=== PATIENT | female | born 1995 | race Hispanic/Latino ===

== ENCOUNTER 2021-06-12 11:48 | Day surgery (SDC) | payer MEDICAID, OTHER ==
[2021-06-12 12:45] VITALS: BMI 25.6
[2021-06-12] MEDS ORDERED: hydrALAZINE 20 MG/ML VIAL SLOW IVP PRN (13:30)
[2021-06-12] MEDS ORDERED: Acetaminophen 325 MG TAB PO SCH (13:30)
[2021-06-12 14:13] LABS: #Eosinphils 0.1 10x3/uL (0.0-0.5); #Monocytes 0.8 10x3/uL (0.0-1.1); #Neutrophils 7.2 10x3/uL (1.5-8.4); %Basophils 0.2 % (0.0-2.0); %Eosinophils 0.7 % (0.0-6.0); %Lymphocytes 18.4 % (18.0-47.0); %Monocytes 7.9 % (0.0-10.0); Hemoglobin 11.8 g/dL (12.0-15.5); Mean Corpuscular HGB CONC 33.7 g/dL (32.0-36.0); Mean Corpuscular Volume 94.9 fl (81.6-98.3); Mean Platelet Volume 11.8 fl (7.4-10.4); Platelet Count 158 10x3/uL (150-450); RBC Distribution Width 13.3 % (11.5-14.5); Red Blood Cell (RBC) Count 3.69 10x6/uL (3.90-5.03)
[2021-06-12 14:31] LABS: Bilirubin Neg (Negative); Blood, Urine Negative (Negative); Clarity Clear (Clear); Glucose, Urine (Dipstick) Normal (Negative); Ketone, Urine Negative (Negative); Leukocyte 500 (Negative); Nitrite Negative (Negative); Protein, Urine (Dipstick) Negative (Neg-Trace); Specific Gravity, Urine 1.005 (1.002-1.036); Urobilinogen Normal mg/dL (Less than 2)
[2021-06-12 14:35] LABS: Urine Culture Reflex No No
[2021-06-12 14:38] LABS: RBC/HPF 0-3 HPF (0-3)
[2021-06-12 14:39] LABS: Bacteria/HPF 2+ HPF (None Seen); Squamous Epithelial 0-3 HPF (0-3); WBC/HPF 21-50 HPF (0-3)
[2021-06-12 14:48] LABS: ALT (SGPT) Less than 6 U/L (8-55); AST (SGOT) 13 U/L (5-34); Albumin 3.6 g/dL (3.5-5.0); Alkaline Phosphatase 77 U/L (40-110); Anion Gap 13 mmol/L (10-20); BUN (Urea Nitrogen) 6 mg/dL (7.0-18.7); Bilirubin, Total 0.4 mg/dL (0.2-1.2); Calc. Creatinine Clearance 179 mL/min (70-130); Calcium 9.1 mg/dL (7.8-10.44); Carbon Dioxide 20 mmol/L (22-29); Chloride 106 mmol/L (98-107); Globulin 3.7 g/dL (2.4-3.5); Glucose 74 mg/dL (70-105); Potassium 3.6 mmol/L (3.5-5.1); Protein, Total 7.3 g/dL (6.0-8.3); Sodium 135 mmol/L (136-145)
[2021-06-12] MEDS ORDERED: Sodium Chloride 0.9% 1,000 ML IV SCH (15:15)
[2021-06-12] MEDS ORDERED: cefTRIAXone\\ROCEPHIN 1 GM in Sodium Chloride 0.9% 100 ML IVPB SCH (16:00)
== END 2021-06-12 19:42 | disposition home or self-care (01) ==
LOC: CSHLD/OP 11:48
PROVIDERS: ATTEND Family Medicine
DX: O99.891 Other specified diseases and conditions complicating pregnancy (principal); R10.9 Unspecified abdominal pain; R30.0 Dysuria; N89.8 Other specified noninflammatory disorders of vagina; O99.013 Anemia complicating pregnancy, third trimester; Z3A.32 32 weeks gestation of pregnancy
CPT/HCPCS: 80053; 81001; 85025; 87086; 87480; 87510; 87591; 87660; 96360; 96361; 96375; 99285; J0696; J3490

== ENCOUNTER 2021-07-17 04:29 | Day surgery (SDC) | payer OTHER ==
[2021-07-17] MEDS ORDERED: hydrALAZINE 20 MG/ML VIAL SLOW IVP PRN (05:29)
[2021-07-17 05:31] VITALS: BMI 29.0
[2021-07-17 05:38] LABS: Fetal Membranes Rupture No Membranes Rupture (No Rupture)
== END 2021-07-17 10:09 | disposition home or self-care (01) ==
LOC: CSHLD/OP 04:29
PROVIDERS: ATTEND Obstetrics & Gynecology
DX: O47.1 False labor at or after 37 completed weeks of gestation (principal); O99.013 Anemia complicating pregnancy, third trimester; Z3A.37 37 weeks gestation of pregnancy
CPT/HCPCS: 84112; 99284

== ENCOUNTER 2021-07-30 06:56 | Inpatient (IN) | payer MEDICAID, OTHER, SELFPAY ==
[2021-07-30] MEDS ORDERED: Oxytocin 10 UNITS/ML VIAL ONE ×2 (07:00→07:06)
[2021-07-30] MEDS ORDERED: Promethazine HCl 25 MG/ML VIAL IM PRN (07:16)
[2021-07-30] MEDS ORDERED: hydrALAZINE 20 MG/ML VIAL SLOW IVP PRN ×2 (07:16→08:43)
[2021-07-30] MEDS ORDERED: Butorphanol Tartrate 1 MG/ML VIAL SLOW IVP PRN (07:16)
[2021-07-30] MEDS ORDERED: Ondansetron PF 4 MG/2 ML Vial IVP PRN ×2 (07:16→08:43)
[2021-07-30] MEDS ORDERED: Lactated Ringer's 1,000 ML IV SCH (07:30)
[2021-07-30 07:53] LABS: Mean Corpuscular HGB CONC 32.7 g/dL (32.0-36.0); Mean Corpuscular Hemoglobin 30.1 pg (27.0-33.0); Mean Corpuscular Volume 91.9 fl (81.6-98.3); Mean Platelet Volume 12.2 fl (7.4-10.4); Platelet Count 167 10x3/uL (150-450); RBC Distribution Width 12.8 % (11.5-14.5); Red Blood Cell (RBC) Count 4.32 10x6/uL (3.90-5.03); White Blood Cell (WBC) Count 8.7 10x3/uL (3.5-10.5)
[2021-07-30 08:22] LABS: Hep B Surf Ag Non-Reactive S/CO (NonReactive); Syphilis Antibody Nonreactive (Nonreactive); Syphilis Antibody Index 0.04 S/CO (<1.00 Non-Reactive)
[2021-07-30 08:42] LABS: HBSAg Index 0.13 S/CO (0-0.99)
[2021-07-30] MEDS ORDERED: Benzocaine-Menthol 82.5 ML CAN TOP PRN (08:43)
[2021-07-30] MEDS ORDERED: Bisacodyl 10 MG SUPP PR PRN (08:43)
[2021-07-30] MEDS ORDERED: Boostrix 0.5 ML (Tdap) VIAL IM ONE (08:43)
[2021-07-30] MEDS ORDERED: Milk Of Magnesia 30 ML UDCUP PO PRN (08:43)
[2021-07-30] MEDS ORDERED: NS w/ Oxytocin 30 units 500 ML IV SCH (08:43)
[2021-07-30] MEDS ORDERED: Misoprostol 200 MCG TAB VAG PRN (08:43)
[2021-07-30] MEDS ORDERED: Preparation H Ointment 28 GM TUBE PR PRN (08:43)
[2021-07-30] MEDS ORDERED: diphenhydrAMINE 25 MG CAP PO PRN (08:43)
[2021-07-30] MEDS ORDERED: Lanolin Ointment 7 GM TUBE TOP PRN (08:43)
[2021-07-30] MEDS ORDERED: Methylergonovine 0.2 MG/ML VIAL IM PRN (08:43)
[2021-07-30] MEDS ORDERED: Ferrous Sulfate 325 MG TAB PO SCH (09:15)
[2021-07-30] MEDS ORDERED: Ibuprofen 800 MG TAB PO SCH ×2 (09:45)
[2021-07-30] MEDS: Docusate 100 MG CAP PO SCH ×2 (10:24→21:10)
[2021-07-30] MEDS: Prenatal Vitamin 1 TAB PO SCH (10:25)
[2021-07-30 11:46] LABS: SARS-CoV-2 NAA Rapid Test Not Detected (NotDetected)
[2021-07-30] MEDS: Ferrous Sulfate 325 MG TAB PO SCH (16:04)
[2021-07-30] MEDS: Ibuprofen 800 MG TAB PO SCH (18:32)
[2021-07-31] MEDS: Ibuprofen 800 MG TAB PO SCH ×3 (04:21→15:30)
[2021-07-31] MEDS: Ferrous Sulfate 325 MG TAB PO SCH (08:44)
[2021-07-31] MEDS: Prenatal Vitamin 1 TAB PO SCH (09:24)
[2021-07-31] MEDS: Docusate 100 MG CAP PO SCH (09:24)
[2021-07-31 11:46] VITALS: BP 113/76; TEMP 98.6
== END 2021-07-31 16:10 | disposition home or self-care (01) | DRG 807 ==
LOC: CSHLD/OP 06:56 → CSHERS 06:56 → CSHLD/OP 07:05 → CSHLD 07:05 → UNDOADMIN 07:05 → EDSTATUS 07:11 → CSHLD 07:42 → CSHPED 09:45
PROVIDERS: ADMIT Family Medicine; ATTEND Family Medicine
PROC: 10E0XZZ Delivery of Products of Conception, External Approach (ICD-10-PCS; principal; 2021-07-30)
PROC: 0HQ9XZZ Repair Perineum Skin, External Approach (ICD-10-PCS; 2021-07-30)
DX: O62.3 Precipitate labor (principal); Z37.0 Single live birth; Z3A.39 39 weeks gestation of pregnancy; O70.0 First degree perineal laceration during delivery
CPT/HCPCS: 85027; 86780; 86850; 86900; 86901; 87340; 88307; J2590; U0002